=== PATIENT | male | born 1940 | race Caucasian/White ===

== ENCOUNTER 2020-08-27 03:41 | Emergency (ER) | payer MEDICARE ==
[2020-08-27] MEDS ORDERED: ONDANSETRON HCL 4 MG/2 ML VIAL ONE (04:01)
[2020-08-27] MEDS ORDERED: MORPHINE SULFATE 4 MG/1ML SYG ONE (04:02)
[2020-08-27 04:22] LABS: BASOPHILS % (AUTO) 1.1 % (0.0-5.0); EOSINOPHILS % (AUTO) 1.8 % (0.0-8.0); HEMATOCRIT 45.3 % (42-54); LYMPHOCYTES % (AUTO) 18.1 % (21.0-51.0); MEAN CORPUSCULAR HEMOGLOBIN 29.6 pg (27.0-33.0); MEAN CORPUSCULAR HGB CONC 33.6 g/dL (32.0-36.0); MEAN CORPUSCULAR VOLUME 88.1 fL (79-99); MONOCYTES % (AUTO) 7.6 % (3.0-13.0); NEUTROPHILS % (AUTO) 71.1 % (40.0-77.0); PLATELET COUNT (AUTO) 236 K/uL (130-400); RED BLOOD CELL COUNT(AUTO) 5.14 MIL/uL (4.50-6.20); WHITE BLOOD COUNT (AUTO) 10.3 K/uL (4.8-10.8)
[2020-08-27 04:26] LABS: APPEARANCE,URINE Clear (CLEAR); BILIRUBIN,URINE Negative (NEGATIVE); COLOR,URINE Yellow (YELLOW); GLUCOSE, URINE (UA) Negative (NEGATIVE); KETONES,URINE Trace mg/dL (NEGATIVE); LEUKOCYTE ESTERASE ,URINE Negative (NEGATIVE); NITRATE,URINE Negative (NEGATIVE); OCCULT BLOOD,URINE Negative (NEGATIVE); PROTEIN,URINE Trace mg/dL (NEGATIVE)
[2020-08-27 04:31] LABS: CREATININE 1.4 mg/dL (0.5-1.5); POTASSIUM 3.7 mmol/L (3.5-5.1)
[2020-08-27 04:39] LABS: INR 1.01 (0.85-1.15)
[2020-08-27 04:40] LABS: PARTIAL THROMBOPLASTIN TIME 27.9 SEC (26.3-35.5)
[2020-08-27] MEDS ORDERED: PANTOPRAZOLE 40 MG/VIAL ONE (04:41)
[2020-08-27 04:44] LABS: ALBUMIN 3.8 g/dL (3.5-5.0); BILIRUBIN,TOTAL 0.8 mg/dL (0.2-1.0); TOTAL PROTEIN, SERUM 7.5 g/dL (6.0-8.3)
[2020-08-27] MEDS ORDERED: SUCRALFATE 1 GM TABLET ONE (05:32)
[2020-08-27] MEDS ORDERED: SODIUM CHLORIDE 0.9% 500ML 500 ML IV ONE (05:33)
== END 2020-08-27 07:42 | disposition home or self-care (01) ==
LOC: EDH 03:41
DX: R10.13 Epigastric pain (principal); K44.9 Diaphragmatic hernia without obstruction or gangrene; R91.1 Solitary pulmonary nodule; I10 Essential (primary) hypertension; K21.9 Gastro-esophageal reflux disease without esophagitis; Z86.718 Personal history of other venous thrombosis and embolism
CPT/HCPCS: 36415; 74176; 80053; 81003; 82550; 83605; 83690; 84484 ×2; 85025; 85610; 85730; 93005 ×2; 96374; 96375; 99285; C9113; J2270; J2405; J7040